=== PATIENT | male | born 1990 | race Caucasian/White ===

== ENCOUNTER 2017-11-28 05:20 | Emergency (ER) | payer MEDICAID ==
[2017-11-28] MEDS ORDERED: LORazepam 0.5 MG TABLET PO STA (05:32)
--- NOTE | 2017-11-28 05:57 | ED Physician Documentation ---
History of Present Illness - Stated complaint Stated Complaint: SUZANNE ARM PAIN - Chief complaint Chief Complaint: Ext Problem - History obtained from History obtained from: Patient, Friend - Additonal information Additional information: Patient is a 27 year old male with a history of anxiety who is presenting to the emergency department for arm pain. Patient state that every now and then he gets a sharp pain in his arm, that goes away on its own within seconds. When questioned what his concern is patient states that he is worried that it might be a heart attack. patient's friend states that over the last four nights he has had almost daily episodes. Review of Systems Constitutional: denies: Fever, Chills Eyes: denies: Decreased vision, Photophobia Ears: reports: Reviewed and negative Nose: reports: Reviewed and negative Throat: reports: Reviewed and negative Cardiac: denies: Chest pain / pressure, Palpitations Respiratory: denies: Dyspnea, Cough, Wheezing GI: reports: Reviewed and negative : reports: Reviewed and negative Skin: denies: Rash, Lesions Musculoskeletal: reports: Extremity pain Neurologic: reports: Reviewed and negative Psychiatric: reports: Anxiety Immunocompromised: denies: Immunocompromised PD PAST MEDICAL HISTORY - Past Medical History Cardiovascular: None Respiratory: None Endocrine/Autoimmune: None : None Psych: Anxiety Derm: None - Past Surgical History Past Surgical History: No - Present Medications Home Medications: Ambulatory Orders Medication Instructions Recorded Confirmed No Known Home Medications [No 11/14/16 11/28/17 Known Home Medications] - Allergies Allergies/Adverse Reactions: Allergies Allergy/AdvReac Type Severity Reaction Status Date / Time No Known Drug Allergies Allergy Verified 11/28/17 05:27 - Social History Does the pt smoke?: No Smoking Status: Never smoker Does the pt drink ETOH?: No Does the pt have substance abuse?: No - Immunizations Immunizations are current?: No Immunizations: TDAP >10years/unknown - POLST Patient has POLST: No PD ED PE NORMAL - Vitals Vital signs reviewed: Yes - General General: Alert and oriented X 3 - HEENT HEENT: Atraumatic, PERRL - Neck Neck: Supple, no meningeal sign, No JVD - Cardiac Cardiac: RRR, No murmur - Respiratory Respiratory: No respiratory distress, Clear bilaterally - Abdomen Abdomen: Soft, Non tender, Non distended - Derm Derm: Normal color, Warm and dry, No rash - Extremities Extremities: No deformity, No tenderness to palpate, Normal ROM s pain, No edema , No calf tenderness / cord - Neuro Neuro: Alert and oriented X 3, No motor deficit, No sensory deficit, Normal speech PD ED PE EXPANDED - General General: Alert, Anxious Results - Vitals Vitals: Vital Signs - 24 hr 11/28/17 05:23 Temperature 36.4 C L Heart Rate 85 Respiratory 16 Rate Blood Pressure 127/85 H O2 Saturation 98 Oxygen O2 Source Room air - EKG (time done) 0542 Rate: Rate (enter#) (76) Rhythm: NSR [place]: Normal Intervals: Normal [facility] QRS: Normal Ischemia: ST elevation c/w repol Compare to prior EKG: Unchanged from prior EKG - Labs Labs: Laboratory Tests 11/28/17 05:52 Troponin I < 0.04 PD MEDICAL DECISION MAKING - ED course Complexity details: reviewed old records, reviewed results, re-evaluated patient , considered differential, d/w patient ED course: Patient was seen and examined at bedside. Patient was anxious but vital signs were within normal limits. patient was treated with ativan 0.5mg ekg was performed and was within normal limits. Patient had a heart score of 0. Patient's symptoms were unlikely cardiac in nature and likely due to anxiety. patient required no further work up and was stable for discharge with outpatient follow up. Departure - Departure Disposition: 01 Home, Self Care Clinical Impression: Anxiety Condition: Good Instructions: ED Stress React Follow-Up: primary,care provider [Other] Comments: Your diagnostics today were within normal limits. There is no is no sign of any cardiac disease. Your symptoms are likely secondary to stress/anxiety. You should trying exercising and breathing exercises if you get these sensations again. You should follow up with your doctor for further evaluation and care as needed. You may return to the emergency department at any time for new, worsening or uncontrollable symptoms.
[2017-11-28 06:47] VITALS: BP 122/80
== END 2017-11-28 06:47 | disposition home or self-care (01) ==
LOC: ED 05:20
DX: F41.9 Anxiety disorder, unspecified (principal)
CPT/HCPCS: 36415; 84484; 93005; 99283; A9270; 80053; 83690; 85025